=== PATIENT | female | born 1970 | race Caucasian/White ===

== ENCOUNTER 2023-06-10 11:49 | Outpatient (AMB) | payer OTHER, SELFPAY ==
--- NOTE | 2023-06-10 11:51 | A.OFFVIS_ITS ---
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 She describes her left knee pain as sharp in nature. She did injure her left knee approximately 1 year ago. She twisted her knee and had acute onset of pain. Since that time her symptoms have gotten worse in spite of continued non operative treatments. She has done physical therapy which aggravated her pain. She has also tried Tylenol and anti-inflammatory medicines which gave her minimal relief. She states that her left knee will give out several times per day. Allergies No Known Allergies Allergy (Verified 06/10/23 12:01) Medication List - Last Reconciled 06/10/23 by Srinivas Gambino MD meloxicam 15 mg PO DAILY Physical Exam Const Other: Well-nourished well-developed very friendly female awake alert and oriented x3 in no acute distress Extrem Other: Bilateral lower extremity examination shows good capillary refill, no skin lesions noted, normal sensation light touch Left knee examination shows a minimal effusion, minimal crepitus with range of motion, tenderness along her medial joint line, positive Lesa's test, no instability Office Procedures Joint Injection/Drain Joint Injection/Drain Primary Site: left knee Prep: site was prepped using aseptic technique Injected: 40 mg of, Kenalog and 1% plain lidocaine Procedure: The patient tolerated the procedure well Coding 43774 - Large joint Procedure code (CPT) selection complete Results Reviewed Results Reviewed: X-rays of the patient's bilateral knee show mild diffuse joint space narrowing, no acute bony abnormalities Assessment & Plan Assessment & Plan (1) Left knee pain: Code(s): M25.562 - Pain in left knee Plan Ms. Baker presents with progressively worsening left knee pain and mechanical symptoms most likely due to a tear of her medial meniscus. I had a lengthy discussion with the patient regarding the treatment options. The risks and benefits of a left knee cortisone injection were discussed at length with the patient. The patient wished to proceed. She tolerated the injection well. I will also send the patient for an MRI of her left knee to further evaluate the status of her medial meniscus. I will see her back once the MRI is completed to discuss the findings and treatment options. Feel free to call me at any time should questions regarding her orthopedic management arise. Thank you very much for asking me to see this very friendly patient. I spent 22 minutes in reviewing the patient's records and imaging studies, seeing the patient and documenting in the medical record. Orders: Orders XR knee RT 3V Today M25.561 - Pain in right knee XR knee LT 3V Today M25.562 - Pain in left knee MR knee LT wo con Today M25.562 - Pain in left knee AMB Joint Injection/Aspiration Today M25.562 - Pain in left knee Coding Level of Care Code New Pt Level 2 (17284) Diagnoses Left knee pain M25.562 CPT Codes Coding - 10348 Large joint: 80438 - Large joint ([id number])
== END 2023-06-10 12:28 | disposition home or self-care (01) ==
PROVIDERS: PCP Physician Assistant; Visit Provider Orthopaedic Surgery
DX: M25.562 Pain in left knee (principal)
CPT/HCPCS: 20610; 99204

== ENCOUNTER 2023-06-10 14:47 | Outpatient (REF) | payer OTHER, SELFPAY ==
--- NOTE | ~2023-06-10 | XR_ITS ---
EXAMINATION: XR KNEE, RIGHT XR KNEE, LEFT CLINICAL INFORMATION: Pain COMPARISON: None available. TECHNIQUE: 3 views of each knee FINDINGS: RIGHT: No acute visible fracture or dislocation. Mild multicompartment arthritic changes. Mild narrowing of the medial femorotibial compartment and lateral patellofemoral compartment. Periarticular osteophytes along the superior margin of the patella. Joint spaces and alignment are otherwise maintained. A fabella is noted in the posterior compartment. No large knee joint effusion. Soft tissue edema in the posterior thigh. LEFT: No acute visible fracture or dislocation. Mild multicompartment arthritic changes. Mild narrowing of the medial femorotibial compartment and lateral patellofemoral compartment. Periarticular osteophytes along the superior margin of the patella. Joint spaces and alignment are otherwise maintained. A fabella is noted in the posterior compartment. No large knee joint effusion. Soft tissue edema in the posterior thigh. XR/XR knee LT 3V IMPRESSION: 1. No acute visible fracture or dislocation. 2. Bilateral mild multicompartment arthritic changes. 3. Soft tissue edema in the posterior thighs bilaterally.
--- NOTE | ~2023-06-10 | XR_ITS ---
EXAMINATION: XR KNEE, RIGHT XR KNEE, LEFT CLINICAL INFORMATION: Pain COMPARISON: None available. TECHNIQUE: 3 views of each knee FINDINGS: RIGHT: No acute visible fracture or dislocation. Mild multicompartment arthritic changes. Mild narrowing of the medial femorotibial compartment and lateral patellofemoral compartment. Periarticular osteophytes along the superior margin of the patella. Joint spaces and alignment are otherwise maintained. A fabella is noted in the posterior compartment. No large knee joint effusion. Soft tissue edema in the posterior thigh. LEFT: No acute visible fracture or dislocation. Mild multicompartment arthritic changes. Mild narrowing of the medial femorotibial compartment and lateral patellofemoral compartment. Periarticular osteophytes along the superior margin of the patella. Joint spaces and alignment are otherwise maintained. A fabella is noted in the posterior compartment. No large knee joint effusion. Soft tissue edema in the posterior thigh. XR/XR knee RT 3V IMPRESSION: 1. No acute visible fracture or dislocation. 2. Bilateral mild multicompartment arthritic changes. 3. Soft tissue edema in the posterior thighs bilaterally.
== END 2023-06-10 14:48 | disposition home or self-care (01) ==
LOC: HO.HOSX 14:47
PROVIDERS: Visit Provider Orthopaedic Surgery
DX: M25.562 Pain in left knee (principal); M25.561 Pain in right knee
CPT/HCPCS: 20610; 73562; 99202; J3301

== ENCOUNTER 2023-09-03 15:56 | Outpatient (REF) | payer OTHER, SELFPAY ==
--- NOTE | ~2023-09-03 | MR_ITS ---
EXAMINATION: MR KNEE WITHOUT CONTRAST, LEFT CLINICAL INFORMATION: Left knee pain. COMPARISON: None available. TECHNIQUE: MRI of the knee without contrast was performed using routine sequences on a high-field scanner. FINDINGS: MENISCI: MEDIAL MENISCUS: A horizontal undersurface tear is present at the posterior horn and body with extrusion of a 1.8 cm flap fragment into the meniscotibial recess medially. Spring soft tissues are edematous. LATERAL MENISCUS: Mild inner margin fraying at the posterior horn. No tears. LIGAMENTS: CRUCIATE: Intact. COLLATERAL: Intact. EXTENSOR MECHANISM: Intact. ARTICULAR CARTILAGE/BONE: Patellofemoral Compartment: Normal. MEDIAL COMPARTMENT: Mild chondral thinning and surface irregularity are present in the medial femoral condyle medial tibial plateau with small marginal osteophytes. LATERAL COMPARTMENT: Articular cartilage appears relatively well-preserved aside from mild degenerative signal within the articular cartilage of the posterior third of the lateral tibial plateau. JOINT FLUID AND BURSAE: Trace joint effusion and Stovall's cyst. Varicose veins are present in the subcutaneous fat medially. MR/MR knee LT wo con IMPRESSION: 1. Horizontal undersurface tear at the posterior horn and body of the medial meniscus with extrusion of a flap fragment into the meniscotibial recess. 2. Mild medial compartment osteoarthritis. 3. Trace joint effusion and Stovall's cyst.
== END 2023-09-03 15:57 | disposition home or self-care (01) ==
LOC: HO.MRI 15:56
PROVIDERS: PCP Physician Assistant; Visit Provider Orthopaedic Surgery
DX: M25.562 Pain in left knee (principal)
CPT/HCPCS: 73721

== ENCOUNTER 2025-04-06 08:34 | Outpatient (REF) | payer OTHER, SELFPAY ==
--- OUTSIDE RECORDS SUMMARY | 2025-04-07 09:09 | XMS_ITS | Clinical Summary ---
Author Organization [address] Address [address] [place] [address] Phone Care Team Providers Care Social Worker Name Role Phone Zuri Serrano Primary Care Provider [phone] Allergies No known active allergies Medications omeprazole (PriLOSEC) [address] capsule Take 1 capsule (20 mg total) by mouth 1 (one) time each day. 03/01/2020 Active Active Problems Problem Noted Date Diagnosed Date Acid reflux 07/02/2024 Chronic superficial gastritis without bleeding 1 Epigastric abdominal pain 04/24/2019 Gastric dysplasia 04/24/2019 Gastric nodule 04/24/2019 Helicobacter pylori gastritis 04/21/2019 Femoral hernia of right side 01/19/2019 Surgical History Surgery Date Site/Laterality Comments BREAST SURGERY 2009 PROCEDURE: [place] BREAST AUGMENTATION WITH IMPLANT OTHER SURGICAL HISTORY 02/08/2019 Right PROCEDURE: [place] RPR RECRT FEM HERNIA REDUCIBLE; COMMENT: Penelope OTHER SURGICAL HISTORY 09/21/2019 Right PROCEDURE: [place] RPR RECRT INGUN HERNIA ANY AGE INCARCERATED Medical History Medical History Date Comments Acid reflux DX:Acid reflux Right inguinal hernia DX:Right i nguinal hernia Family History Medical History Relation Name Comments Heart failure Father Other: Other Mother Breast cancer Neg Hx Ovarian cancer Neg Hx Uterine cancer Neg Hx Relation Name Status Comments Father Mother Social History Tobacco Use Types Packs/Day Years Used Date Smoking Tobacco: Never Smokeless Tobacco: Never Alcohol Use Standard Drinks/Week Comments No 0 (1 standard drink = 0.6 oz pur e alcohol) Comments Unknown Sex and Gender Information Value Date Recorded Sex Assigned at Not on file Legal Sex Female 6:15 AM EST Gender Identity Not on file Sexual Orientation Not on file Obstetrics History Plan of Treatment Health Maintenance Due Date Last Done Comments Breast Cancer Screening 1970 DTaP,Tdap,and Td Vaccines (1 - Tdap) 09/16/1990 Hepatitis B Vaccines (1 of 3 - 19+ 3-dose series) 09/16/1990 Pneumococcal Vaccine: 50+ Years (1 of 1 - PCV) 09/16/2021 Zoster Vaccines (1 of 2) 09/16/2021 Cervical Cancer Screening: P ap Smear 12/08/2021 12/08/2018, 12/08/2018, 12/08/2018 HIV Screening 06/28/2022 Hepatitis C Screening 06/28/2022 Social Influencers of Health Screening 06/28/2022 Depression Screening 07/20/2024 COVID-19 Vaccine (1 - 2023-2 5 season) 2025 Influenza Vaccine (#1) 2025 Colorectal Cancer Screening: Colonoscopy 11/22/2028 11/22/2018 HIB Vaccines Aged Out No longer eligi ble based on patient's age to complete this topic HPV Vaccines Aged Out No longer eligi ble based on patient's age to complete this topic Hepatitis A Vaccines Aged Out No long er eligible based on patient's age to complete this topic IPV Vaccines Aged Out No longer eligi ble based on patient's age to complete this topic MMR Vaccines Aged Out No longer eligi ble based on patient's age to complete this topic Meningococcal ACWY Vaccine Aged Out N o longer eligible based on patient's age to complete this topic Meningococcal B Vaccine Aged Out No l onger eligible based on patient's age to complete this topic RSV Immunization Patients Under 20 months Aged Out No longer eligible b ased on patient's age to complete this topic Varicella Vaccines Aged Out No longer eligible based on patient's age to complete this topic Procedures Procedure Name Priority Date/Time Associated Diagnosis Comments PAP SMEAR Routine 12/08/2018 [facility] COLONOSCOPY Routine 11/22/2018 from Last 3 Months or Most Recently Relevant to Health Maintenance Results * Pap smear (12/08/2018) 12/08/2018 Narrative HISTORICAL TESTING LAB RESULTING AGENCY - 12/15/2018 5:05 PM EDT [id number] THINPREP PAP, IMAGED: NEGATIVE FOR SQUAMOUS INTRAEPITHELIAL LESION . ENDOMETRIAL CELLS ARE PRESENT. ABUNDANT RED BLOOD CELLS ARE PRESENT. CHRISTOPHER SCOTT(ASCP) (CASE SCREENED 12 10 2018) HUNTER SHEEHAN M.D. , PATHOLOGIST (CASE ELECTRONICALLY SIGNED 12 14 2018) RESULT OF APTIMA HIGH RISK HPV ASSAY: HIGH RISK HPV: NEGATIVE (SEROTYPES 16,18,31,33,35,39,45,51,52,56,58,59,66,68) COMPLETED ON 2018-12-10 ADEQUACY: SATISFACTORY ENDOCERVICAL/TRANSFORMATION ZONE COMPONENT PRESENT. SOURCE: THINPREP PAP HPV ANY DX: REFLEX 16 AND 18, CERVICAL, IMAGED CLINICAL INFORMATION: HPV ANY DIAGNOSIS. Z12.4, PAP HX NEGATIVE Yanni Avilez MD LAB CYTOLOGY ORDERABLES Final Result HISTORICAL TESTING LAB RESULTING AGENCY * Colonoscopy (11/22/2018) Colonoscopy NO INTERPRETATION , ABSTRACTED Anatomical Region Laterality Modality Other Historical Provider HEALTH MAINTENANCE Final Result from Last 3 Months or Most Recently Relevant to Health Maintenance Insurance [facility] Care Teams Social Worker Relationship Specialty Start Date End Date Zuri Serrano [place] [address] [place] [address] PCP - General Internal Medicine 12/09/18
--- OUTSIDE RECORDS SUMMARY | 2025-04-07 09:09 | XMS_ITS | Clinical Summary ---
Author Organization [facility] Address [address] [place] [address] Care Team Providers Care Paper Tube Machine Operator Name Role Phone ZachNigelZuri PA-C Primary Care Provider [phone] Source Comments PLEASE NOTE, if this patient is a minor, it may be UNLAWFUL to discuss sensitive information that is contained in these records (such as FAMILY PLANNING, MENTAL HEALTH or SUBSTANCE ABUSE) with the minor patient's parent or other person without the patient's specific authorization.[facility] Allergies No known active allergies Medications omeprazole (PRILOSEC) [address] capsuleIndicati ons:Dyspepsia Take 1 Capsule by mouth every morning before breakfast 90 Capsule 1 3 Active meloxicam (MOBIC) 15 mg tabletIndicatio ns:Acute pain of left knee TAKE 1 TABLET BY MOUTH EVERY DAY 90 Tablet 1 4 Active chlorthalidone (HYGROTEN) 25 mg tabletIndicatio ns:Labile blood pressure Take 1 Tablet by mouth once daily 90 Tablet 2 4 Active Active Problems Problem Noted Date Diagnosed Date Pre-diabetes 04/05/2021 Cyst of right ovary 201805/04/2020 History of right inguinal hernia repair x 2 04/19 Gastric dysplasia on EGD 08/11/2019 09/27/2019 Overview (09/27/2019): [facility] Surgical Pathology Service Gutierrez Gutierrez MD [address] [facility] [place] [address] Arnoldo Frye MD MD Brittany Jensen MD Luis Moral, MD Jeffrey Sussman, MD Chris Zembowicz, MD, PhD Ruddy Villa MD,PhD [facility] SURGICAL PATHOLOGY REPORT Name: PRESTON FLOOD Sex: F Service Date: 08/10/19 Hosp#: [id number] Date Reported: 08/11/19 : 1970 Age: 48 MR#: [id number] Physician: GERMAN UMANA MD Location: [facility] ANTRUM, NODULE-BIOPSY: - GASTRIC ANTRAL MUCOSA WITH REACTIVE GASTROPATHY, EROSION, AND LOW GRADE DYSPLASIA. - IMMUNOHISTOCHEMISTRY: - HELICOBACTER PYLORI: negative. - P53: increased in dysplastic epithelium relative to background mucosa. - Controls stain appropriately. Brittany Lambert M.D. , Pathologist (Case electronically signed 08 11 2019) Pre-Op/Clinical Diagnosis: *HISTORY OF ANTRAL NODULE WITH H. PYLORI AND DYSPLASIA. RE-BIOPSY ANTRAL NODULE WITH EROSION Specimen and Site: ANTRUM, NODULE-BIOPSY Gross Description: Labeled antral nodule biopsy . Received in formalin are three soft, macdonald-red tissue fragments, ranging from 0.2 cm to 0.3 cm in greatest diameters admixed with blood clot, which are wrapped in paper and submitted in toto in one cassette, three pieces, multiple levels on one slide. eo/SL The immunohistochemical tests were developed and their performance characteristics were determined by [facility]. They have not been cleared or approved by the U.S. Food and Drug Administration. The FDA has determined that such clearance or approval is not necessary. These tests are used for clinical purposes. They should not be regarded as investigational or for research. This laboratory is certified under the Clinical Laboratory Improvement Amendments of 1988 (CLIA) as qualified to perform high complexity clinical laboratory testing. Physicians: GERMAN UMANA/ / Family history of rectal cancer (mom) 10/11/2018 DDD (degenerative disc disease), lumbar 08/20/19 17 Family planning- 2012 10 year IUD 12/07/2013 Immunizations Immunization Administration Dates Next Due TDAP 07/08/2013 Social History Tobacco Use Types Packs/Day Years Used Date Smoking Tobacco: Never Passive Smoke Exposure: Never Smokeless Tobacco: Never Tobacco Cessation:Counseling Given: Yes Alcohol Use Standard Drinks/Week Comments No 0 (1 standard drink = 0.6 oz pur e alcohol) Social Connections Answer Date Recorded How often do you feel lonely or isolated from th ose around you? 1 07/05/2024 Financial Resource Strain Answer Date R ecorded Hard to pay for: Food 1 07/05/2024 Stress Answer Date Recorded Do you feel these kinds of stress these days? 1 07/05/2024 Physical Activity Answer Date Recorded Physical Activity 0 03/12/2019 Food Insecurity Answer Date Recorded Hard to pay for: Food 1 07/05/2024 Transportation Needs Answer Date Record ed Hard to pay for: Transportation 1 07/05/2024 Housing Stability Answer Date Recorded Hard to pay for: Rent/Mortgage payment 1 07/05/2024 Safety and Environment Answer Date Matthew rded Safety 0 05/19/2023 Utilities Answer Date Recorded Hard to pay for: Utilities 1 07/05 Employment Answer Date Recorded Stress 0 05/19/2023 Comments No Sex and Gender Information Value Date Recorded Sex Assigned at Female 02/15/2018 7:41 PM PDT Legal Sex Female 11:36 AM PDT Gender Identity Female 02/15/2018 7:41 PM PDT Sexual Orientation Straight 02/15/2018 7: 41 PM PDT Last Filed Vital Signs Vital Sign Reading Time Taken Comments Blood Pressure 118/76 05/19/2023 1:34 PM EDT Pulse 91 05/19/2023 1:34 PM EDT Temperature 36.8 C (98.3 F) 05/19/2023 1:34 PM EDT Respiratory Rate 16 05/19/2023 1:34 PM EDT Oxygen Saturation 97% 05/19/2023 1:34 PM EDT Inhaled Oxygen Concentration - - Weight 71.7 kg (158 lb) 05/19/2023 1:34 PM EDT Height 157.5 cm (5' 2 ) 05/19/2023 1:34 PM EDT Body Mass Index 28.9 05/19/2023 1:34 PM EDT Plan of Treatment Health Maintenance Due Date Last Done Comments Anxiety Screening 1970 HPV Screening 1970 Imm-Hepatitis B (1 of 3 - 19 + 3-dose series) 09/16/1990 Breast Cancer Screening (Mammogram) 2011 CT Colonography 2016 FIT/gFOBT 2016 Fecal DNA 2016 Flexible Sigmoidoscopy 2016 Imm-Pneumococcal 50+ (1 of 1 - PCV) 09/16/2021 Imm-Zoster, Recombinant (1 of 2) 09/16/2021 Annual Wellness (Adult): Indicated (All Coverage) 01/28/2023 01/28/2022, 05/04/2020, 02/15/2018, Additional history exists Imm-DTaP/Tdap/Td (2 - Td or Tdap) 07/08/2023 013 Hypertension Screening (#1) 05/18/2024 Alcohol and Drug Screen 07/20/2024 07/05/20 24, 05/19/2023, 01/28/2022, Additional history exists Depression Annual Screen 07/20/2024 07/05/2024, 04/19 [id number] ( - season) 2025 022 Imm-Influenza (#1) 2025 07/11/2013 (Declined) Diabetes Screening 06/10/2025 06/10/2024, 1 08/10/2023, 06/10/2024, Additional history exists Tobacco Screening 07/05/2025 07/05/2024 Lipid Screening 04/30/2028 04/30/2023, 01/17, 05/04/2020, Additional history exists Colonoscopy 11/22/2028 11/22/2018 Colorectal Cancer Screening 11/22/2028 Pap Smear Discontinued 07/11/2013 (Declined) HIV Screening Completed 02/22/2018 Hepatitis C Screening Completed 02/22/2018 Cervical Ablation/Cold-Knife Conization Discontinued Cervical Cancer Screening Discontinued Cervical Cryotherapy Discontinued Colposcopy Discontinued Endometrial Biopsy Discontinued Excision/Leep Discontinued HPV Genotyping Discontinued Pap + HPV Discontinued Vaginal Pap Discontinued Vulvoscopy Discontinued Procedures Procedure Name Priority Date/Time Associated Diagnosis Comments COMPREHENSIVE METABOLIC PANEL Routine 05/19/2023 2:17 PM EDT LIPID PANEL Routine 04/30/2023 3:53 PM EDT Acute pain of left knee Pre-diabetes Mild hyperlipidemia COLONOSCOPY Routine 11/22/2018 2:15 PM EDT ANTIBODY HIV-1&HIV-2 SINGLE RESULT Routine 02/22/2018 3:38 PM EDT Routine general medical examination at a health care facility Left breast mass HEPATITIS C ANTIBODY Routine 02/22/2018 3:38 PM EDT Routine general medical examination at a health care facility Left breast mass from Last 3 Months or Most Recently Relevant to Health Maintenance Results * (ABNORMAL) COMPREHENSIVE METABOLIC PANEL (05/19/2023 2:17 PM EDT) GLUCOSE 131(H) 65 - 99 mg/dL [facility] Comment: Fasting reference interval For someone without known diabetes, a glucose value >125 mg/dL indicates that they may have diabetes and this should be confirmed with a follow-up test. UREA NITROGEN (BUN) 12 7 - 25 mg/dL [facility] CREATININE (blood) 0.66 0.50 - 1.03 mg/dL [facility] EGFR 106 > OR = 60 mL/min/1. 73m2 [facility] BUN/CREATININE RATIO SEE NOTE: 6 [facility] Comment: Not Reported: BUN and Creatinine are within reference range. SODIUM 136 135 - 146 mmol/L [facility] POTASSIUM 3.9 3.5 - 5.3 mmol/L [facility] CHLORIDE 103 98 - 110 mmol/L [facility] CARBON DIOXIDE 26 20 - 32 mmol/L [facility] CALCIUM 9.4 8.6 - 10.4 mg/dL [facility] PROTEIN, TOTAL 6.9 6.1 - 8.1 g/dL [facility] ALBUMIN 4.3 3.6 - 5.1 g/dL [facility] GLOBULIN 2.6 1.9 - 3.7 g/dL (calc) [facility] ALBUMIN/GLOBULI N RATIO 1.7 1.0 - 2.5 (calc) [facility] BILIRUBIN, TOTAL 0.4 0.2 - 1.2 mg/dL [facility] ALKALINE PHOSPHATASE 42 37 - 153 U/L [facility] AST 16 10 - 35 U/L [facility] ALT 13 6 - 29 U/L [facility] 05/19/2023 2:17 PM EDT 05/19/2023 2:18 PM EDT Zuri Serrano PA-C LAB - BLOOD DRAW Edited Resu lt - Final Performing Organization Address City/[facility]/ZIP Co de Phone Number [facility] [address] [address], [facility] [address] [address] * (ABNORMAL) LIPID PANEL (04/30/2023 3:53 PM EDT) [facility] Signature CHOLESTEROL, TOTAL 186 <200 mg/dL [facility] HDL CHOLESTEROL 50 > OR = 50 mg/dL [facility] TRIGLYCERIDES 122 <150 mg/dL [facility] LDL-CHOLESTEROL 113(H) 99 mg/dL (calc) [facility] Comment: Reference range: <100 Desirable range <100 mg/dL for primary prevention; <70 mg/dL for patients with CHD or diabetic patients with > or = 2 CHD risk factors. LDL-C is now calculated using the Merced calculation, which is a validated novel method providing better accuracy than the Friedewald equation in the estimation of LDL-C. Gutierrez OLMEDO et al. JUNO. 2013;310(19): 0740-0159 (http://education.[employer]/faq/PEM959) CHOL/HDLC RATIO 3.7 <5.0 (calc) [facility] NON-HDL CHOLESTEROL 136(H) <130 mg/dL (calc) [facility] Comment: For patients with diabetes plus 1 major ASCVD risk factor, treating to a non-HDL-C goal of <100 mg/dL (LDL-C of <70 mg/dL) is considered a therapeutic option. Blood Blood / Unknown 04/30/2023 3 :53 PM EDT 04/30/2023 3:53 PM EDT Narrative [facility] - 05/01/2023 2:39 PM EDT FASTING:NO Zuri Serrano PA-C LAB - BLOOD DRAW Final Resul t Performing Organization Address [facility]/ZIP Co de Phone Number [facility] [address] [address], [facility] [address] [address] * COLONOSCOPY (11/22/2018 2:15 PM EDT) Impressions Alvaro Malik, DENIZ - 11/22/2018 2:15 PM EDT Internal hemorrhoids. No specimens collected. Repeat colonoscopy in 5 years. Provider [facility] PROCEDURES Final Result * HEPATITIS C ANTIBODY (02/22/2018 3:38 PM EDT) Pathologist [facility] HEPATITIS C VIRUS SCREEN NEGATIVE NEGATIVE [facility] Blood specimen (specimen) Blood / Unknown 02/22/2018 3:38 PM EDT 02/22/2018 7:[address] [facility] - 02/22/2018 9:10 PM EDT [facility] [employer] [address] [place] [address] [place] [id number] ORD# [id number] Zuri Serrano PA-C LAB - BLOOD DRAW Final Resul t [address] [address], [place] [phone] * HIV-1 & HIV-2 ANTIBODIES (02/22/2018 3:38 PM EDT) [facility] HIV 1 AND 2 ANTIBODY SCREEN NEGATIVE NEGATIVE [facility] Comment: This assay is a 4th generation assay allowing for earlier detection of HIV infection by detecting the presence of the HIV-1 p24 antigen as well as the traditional antibodies to HIV type 1 (including group O) and type 2. Use of a 4th generation assay is the current CDC recommendation for HIV screening. Blood specimen (specimen) Blood / Unknown 02/22/2018 3:38 PM EDT 02/22/2018 7:[address] [facility] - 02/22/2018 9:10 PM EDT [facility] [address] [place] [address] [place] [id number] ORD# [id number] Zuri Serrano PA-C LAB - BLOOD DRAW Final Resul t [facility] [address] [place] [address], from Last 3 Months or Most Recently Relevant to Health Maintenance Insurance Boundary Member Subscriber Plan / Payer (Ef fective 2021-Present) Name:Preston Flood Relation to Subscriber:Self Name:RanBebo brunolena Payer ID:[id number] Type:Indemnity Address: [facility] [address] [place] [address] Care Teams Paper Tube Machine Operator Relationship Specialty Start Date End Date Zuri Serrano PA-C [address] [place] [address] PCP - General 04/28/13
--- OUTSIDE RECORDS SUMMARY | 2025-04-07 09:09 | XMS_ITS | Encounter Summary ---
Author Organization [facility] Address [address] [place] [address] Care Team Providers Care French Comber Name Role Phone Zuri Serrano Primary Care Provider [phone] Encounter Details Date Type Department Care Team (Late st Contact Info) Description 06/10/2024 Lab Requisition [facility] - Main Lab [address] [facility] [place] [address] Kylee Stevens PA [address] [place] [address] Abnormal weight gain; Encounter for general adult medical examination without abnormal findings; Other abnormal glucose; Vitamin D deficiency, unspecified Social History Tobacco Use Types Packs/Day Years Used Date Smoking Tobacco: Never Smokeless Tobacco: Never Alcohol Use Standard Drinks/Week Comments No 0 (1 standard drink = 0.6 oz pur e alcohol) Comments Unknown Sex and Gender Information Value Date Recorded Sex Assigned at Not on file Legal Sex Female 6:15 AM EST Gender Identity Not on file Sexual Orientation Not on file documented as of this encounter Plan of Treatment Not on file documented as of this encounter Procedures Procedure Name Priority Date/Time Associated Diagnosis Comments THYROID STIMULATING HORMONE WITH REFLEX TO FREE T4 AND FREE T3 Routine 06/10/2024 2:21 PM EST Abnormal weight gain Encounter for general adult medical examination without abnormal findings Other abnormal glucose Vitamin D deficiency, unspecified VITAMIN D 25 HYDROXY Routine 06/10/2024 2:21 PM EST Abnormal weight gain Encounter for general adult medical examination without abnormal findings Other abnormal glucose Vitamin D deficiency, unspecified HEMOGLOBIN A1C Routine 06/10/2024 2:21 PM EST Abnormal weight gain Encounter for general adult medical examination without abnormal findings Other abnormal glucose Vitamin D deficiency, unspecified VITAMIN B12 Routine 06/10/2024 2:21 PM EST Abnormal weight gain Encounter for general adult medical examination without abnormal findings Other abnormal glucose Vitamin D deficiency, unspecified COMPREHENSIVE METABOLIC PANEL Routine 06/10/2024 2:21 PM EST Abnormal weight gain Encounter for general adult medical examination without abnormal findings Other abnormal glucose Vitamin D deficiency, unspecified documented in this encounter Results * (ABNORMAL) Vitamin D 25 hydroxy (06/10/2024 2:21 PM EST) Pathologist [facility] Vit D, 25-Hydroxy 24.1(L) 30.0 - 80.0 ng/mL LAB CHEMISTRY METHOD 06/10/2024 6:17 PM EST [facility] Blood Venous blood specimen / Unknown 06/10/2024 2:21 PM EST 06/10/2024 5:45 PM EST us Kylee PEREZ LAB BLOOD ORDERABLES Final Resul t Performing Organization Address City/[facility]/ZIP Co de Phone Number [facility] [address] [place] [address], [place] [phone] * Hemoglobin A1c (06/10/2024 2:21 PM EST) [facility] Hemoglobin A1C 5.1 <6.5 % LAB CHEMISTRY METHOD 06/10/2024 8:24 PM EST [facility] Mean Bld Glu Estim. 100 mg/dL LAB CHEMISTRY METHOD 06/10/2024 8:24 PM EST [facility] Blood Venous blood specimen / Unknown 06/10/2024 2:21 PM EST 06/10/2024 5:45 PM EST us Kylee PEREZ LAB BLOOD ORDERABLES Final Resul t Performing Organization Address City/[facility]/ZIP Co de Phone Number [facility] [address] [place] [address], [place] [phone] * Vitamin B12 (06/10/2024 2:21 PM EST) Pathologist [facility] Vitamin B-12 750 250 - 900 pcg/mL LAB CHEMISTRY METHOD 06/10/2024 6:34 PM EST [facility] Blood Venous blood specimen / Unknown 06/10/2024 2:21 PM EST 06/10/2024 5:45 PM EST Kylee PEREZ LAB BLOOD ORDERABLES Final Resul t [facility] [address] [place] [address], [place] [phone] * Thyroid stimulating hormone with reflex to free t4 and free t3 (06/10/2024 2:21 PM EST) [facility] TSH 1.25 0.40 - 4.00 mcIU/mL LAB CHEMISTRY METHOD 06/10/2024 6:17 PM EST [facility] Blood Venous blood specimen / Unknown 06/10/2024 2:21 PM EST 06/10/2024 5:45 PM EST Kylee PEREZ LAB BLOOD ORDERABLES Final Resul t Performing Organization Address City/[facility]/ZIP Co de Phone Number [facility] [address] [place] [address], [place] [phone] * Comprehensive metabolic panel (06/10/2024 2:21 PM EST) [facility] Sodium 139 133 - 145 mmol/L LAB CHEMISTRY METHOD 06/13/2024 8:50 PM EST [facility] Potassium 4.1 3.5 - 5.5 mmol/L LAB CHEMISTRY METHOD 06/13/2024 8:50 PM EST [facility] Chloride 107 96 - 110 mmol/L LAB CHEMISTRY METHOD 06/13/2024 8:50 PM EST [facility] CO2 24 21 - 32 mmol/L LAB CHEMISTRY METHOD 06/13/2024 8:[address] [facility] Anion Gap 8 3 - 11 LAB CHEMISTRY METHOD 06/13/2024 8:[address] [facility] Glucose 74 70 - 100 mg/dL LAB CHEMISTRY METHOD 06/13/2024 8:[address] [facility] BUN 12 5 - 25 mg/dL LAB CHEMISTRY METHOD 06/13/2024 8:[address] [facility] Creatinine 0.58 0.50 - 1.10 mg/dL LAB CHEMISTRY METHOD 06/13/2024 8:[address] [facility] eGFR 109 >=60 mL/min/1. 73m2 LAB CHEMISTRY METHOD 06/13/2024 8:[address] [facility] Comment:Calculation based on the Chronic Kidney Disease Epidemiology Collaboration (CKD-EPI) equation refit without adjustment for race. BUN/Creatinine Ratio 20.7 LAB CHEMISTRY METHOD 06/13/2024 8:[address] [facility] Calcium 9.2 8.5 - 10.5 mg/dL LAB CHEMISTRY METHOD 06/13/2024 8:[address] [facility] AST (SGOT) 19 10 - 42 unit/L LAB CHEMISTRY METHOD 06/13/2024 8:[address] [facility] ALT (SGPT) 20 10 - 60 unit/L LAB CHEMISTRY METHOD 06/13/2024 8:[address] [facility] Alkaline Phosphatase 59 42 - 121 unit/L LAB CHEMISTRY METHOD 06/13/2024 8:[address] [facility] Total Protein 6.9 6.0 - 8.0 g/dL LAB CHEMISTRY METHOD 06/13/2024 8:[address] [facility] Albumin 3.7 3.2 - 5.0 g/dL LAB CHEMISTRY METHOD 06/13/2024 8:[address] [facility] Total Bilirubin 0.5 0.0 - 1.4 mg/dL LAB CHEMISTRY METHOD 06/13/2024 8:50 PM EST [facility] Blood Venous blood specimen / Unknown 06/10/2024 2:21 PM EST 06/10/2024 5:45 PM EST us Kylee PEREZ LAB BLOOD ORDERABLES Edited Resu lt - Final [facility] [address] [place] [address], documented in this encounter Visit Diagnoses Diagnosis Abnormal weight gain Encounter for general adult medical examination without abnormal findings Other abnormal glucose Vitamin D deficiency, unspecified documented in this encounter Care Teams French Comber Relationship Specialty Start Date End Date Zuri Serrano PA [address] [place] [address] PCP - General Internal Medicine 12/09/18 documented as of this encounter
== END 2025-04-06 08:35 | disposition home or self-care (01) ==
LOC: HO.HOSX 08:34
PROVIDERS: Visit Provider Orthopaedic Surgery
DX: Z13.89 Encounter for screening for other disorder (principal)